=== PATIENT | female | born 1965 | race Two or more races ===

== ENCOUNTER 2018-03-05 17:19 | Emergency (ER) | payer BC ==
[~2018-03-05] VITALS: Ht 154.9 cm; Wt 97.5 kg
[~2018-03-05 17:19] MED LIST: ENAL2.5T PO; GLIP-115 PO; METF-371 PO
[2018-03-05 18:35] VITALS: BP 138/75
== END 2018-03-05 18:44 | disposition home or self-care (01) ==
LOC: ER 17:19
DX: I82.4Z1 Acute embolism and thrombosis of unspecified deep veins of right distal lower extremity (principal); E11.9 Type 2 diabetes mellitus without complications; I10 Essential (primary) hypertension; E07.89 Other specified disorders of thyroid; Z98.51 Tubal ligation status